=== PATIENT | female | born 1960 | race Caucasian/White ===

== ENCOUNTER → 2017-07-02 | Outpatient (CLI) | payer OTHER ==
--- NOTE | 2017-07-02 11:26 | RAD ---
Thyroid ultrasound 07/02/2017 Clinical history: Elevated TSH. Technique: A real-time ultrasound examination of the thyroid gland was performed. Multiple images were obtained. Findings: The thyroid gland is small and heterogeneous. The right lobe of thyroid gland measures 3.1 x 1.5 x 1.3 cm in longitudinal, transverse, and AP dimensions. The left lobe of thyroid gland measures 2.6 x 1.2 x 1.0 cm in size. The isthmus measures 3 mm in thickness which is within normal limits. Within the right lobe of the thyroid gland a 7 mm oval-shaped slightly heterogeneous nodule is seen. This has a well-defined border and is considered to be benign. No additional abnormality of the thyroid gland is seen. Impression: The thyroid gland is small and heterogeneous. A 7 mm benign-appearing nodule is seen involving the right lobe of the thyroid gland. No additional abnormality is seen.
== END | disposition home or self-care (01) ==
LOC: US 08:47
PROVIDERS: ATTEND Physician Assistant Medical
DX: R94.6 Abnormal results of thyroid function studies (principal)
CPT/HCPCS: 76536

== ENCOUNTER 2018-11-30 21:20 | Emergency (ER) | payer OTHER ==
[~2018-11-30] VITALS: Ht 157.5 cm; Wt 68.2 kg
[2018-11-30] MEDS ORDERED: LIDO:MAALOX 1:1 20 ML SINGLE DOSE. PO ONE (21:45)
[2018-11-30 21:54] LABS: BASO # 0.1 x10^3/uL (0.0-0.2); BASO % 1 % (0-3); EOS # 0.4 x10^3/uL (0.0-0.7); EOS % 4 % (0-3); HEMATOCRIT 41.2 % (36.0-47.0); HEMOGLOBIN 13.9 g/dL (12.0-15.5); LYMPH # 2.5 x10^3/uL (1.0-4.8); LYMPH % 26 % (24-48); MEAN CORPUSCULAR HEMOGLOBIN 30 pg (25-35); MEAN CORPUSCULAR HGB CONC 34 g/dL (31-37); MEAN CORPUSCULAR VOLUME 89 fL (79-100); MONO # 0.9 x10^3/uL (0.0-1.1); MONO % 10 % (0-9); NEUT # 5.6 x10^3uL (1.8-7.7); NEUT % 59 % (31-73); PLATELET COUNT 369 x10^3/uL (140-400); RED BLOOD COUNT 4.66 x10^6/uL (3.50-5.40); RED CELL DISTRIBUTION WIDTH 13.6 % (11.5-14.5); WHITE BLOOD COUNT 9.4 x10^3/uL (4.0-11.0)
[2018-11-30] MEDS ORDERED: IV NORMAL SALINE 1,000ML 1,000 ML IV SCH (22:00)
[2018-11-30 22:15] LABS: ALBUMIN/GLOBULIN RATIO 1.2 (1.0-1.7); CALCIUM 8.8 mg/dL (8.5-10.1); CREATININE 0.9 mg/dL (0.6-1.0); GFR 64.5; MAGNESIUM 2.1 mg/dL (1.8-2.4); POTASSIUM 3.8 mmol/L (3.5-5.1); TOTAL BILIRUBIN 0.4 mg/dL (0.2-1.0); TOTAL PROTEIN 7.4 g/dL (6.4-8.2)
[2018-11-30] MEDS ORDERED: CONTRAST GIVEN MC PRN (22:30)
[2018-11-30] MEDS ORDERED: KETOROLAC 30 MG/ML VIAL. IV ONE (23:00)
[2018-11-30] MEDS ORDERED: IOHEXOL 350 MG/ML 100 ML VIAL. IV ONE (23:00)
--- NOTE | 2018-11-30 23:28 | RAD ---
Chest AP portable at 2131: Reason for examination: Chest pain with shortness of breath and nausea. Comparison is made to previous study dated 07/13/2016. The heart size is normal. Mediastinum is unremarkable. Lung hernandez are clear. No acute bony abnormalities are seen. IMPRESSION: No acute cardiopulmonary disease. CT angiogram of the chest with contrast: Helical images were obtained through the chest with intravenous administration of 90 cc Omnipaque 350 using PE protocol. 3-D MIPS reconstruction was performed in sagittal and coronal planes. Exposure: One or more of the following individualized dose reduction techniques were utilized for this examination: 1. Automated exposure control 2. Adjustment of the mA and/or kV according to patient size 3. Use of iterative reconstruction technique. No abnormality seen at the thyroid gland. The trachea and mainstem bronchi show no intraluminal lesions. No abnormality seen at the esophagus. The thoracic aorta shows no aneurysmal dilatation or dissection. The heart size is normal with no pericardial effusion. There is no evidence of pulmonary embolus. The lung hernandez show a small noncalcified pulmonary nodule in the left lingular peripherally measuring 4.7 mm in size. This likely represents a granuloma but recommend follow-up according to Fleischner Society guidelines. No other infiltrates or pleural effusions are seen. No abnormality seen at the liver, adrenal glands or spleen. No acute bony abnormalities are seen. IMPRESSION: No evidence of pulmonary embolus. Small 4.7 mm noncalcified nodule peripherally in the left lingula. This probably represents a granuloma but recommend follow-up according to Fleischner Society guidelines. Fleischner Society recommendations (Radiology 2013; 266;304-317): Subsolid nodules: Solitary pure groundglass nodules: Less then or equal to 5 mm: No CT follow-up is required. Greater than 5 mm: Initial follow-up CT at 3 months, it persists, then annual surveillance CT for minimal of 3 years. Solitary part solid nodules: Less than 5 mm: Initial follow-up CT at 3 months, it persists, then annual surveillance CT for minimal 3 years. Greater or equal to 5 mm: Initial follow-up CT at 3 months, if persists, then biopsy or surgical resection. Multiple subsolid nodules: Groundglass nodules less than or equal to 5 mm: Obtained follow-up CT at 2 and 4 years. Groundglass nodules greater than 5 mm: Initial CT follow-up at 3 months, then annual surveillance CT for minimal of 3 years. Dominant nodule with part solid or solid component: Initial follow-up CT at 3 months. It persists, biopsy or surgical resection is recommended for lesions greater than 5 mm. Electronically signed by: Gertrudis Das MD (11/30/2018 11:25 PM) [id number]
--- NOTE | 2018-11-30 23:38 | PHYS DOC ---
Adult General Chief Complaint Chief Complaint: CHEST PAIN-CARDIAC NATURE HPI HPI Patient is a 58-year-old female who presents with complaint of chest discomfort that has been present for approximately one week now. Patient states that the pain feels like a tightness and she also feels the tightness in her back. She denies any nausea, vomiting or diaphoresis. She does indicate that she has a history of reflux. Patient rates her pain currently at a 4 out of 10. She states that nothing seems to worsen or improve her pain.[] Review of Systems Review of Systems Constitutional: Denies fever or chills [] Respiratory: Denies cough or shortness of breath [] Cardiovascular: No additional information not addressed in HPI [] GI: Denies abdominal pain, nausea, vomiting or diarrhea [] Musculoskeletal: Denies back pain or joint pain [] Neurologic: Denies headache, focal weakness or sensory changes [] All other systems were reviewed and found to be within normal limits, except as documented in this note. Current Medications Current Medications Current Medications Medications (Trade) Dose Ordered Sig/Haydee Start Time Stop Time Status Last Admin Dose Admin Info (Do NOT chart on this entry -- for MONITORING) 1 each PRN DAILY PRN 11/30/18 22:30 12/02/18 22:29 Iohexol (Omnipaque 350 Mg/ml) 100 ml 1X ONCE 11/30/18 23:00 11/30/18 23:01 DC 11/30/18 22:58 100 ML Ketorolac Tromethamine (Toradol 30mg Vial) 30 mg 1X ONCE 11/30/18 23:00 11/30/18 23:01 DC 11/30/18 22:32 30 MG Multi-Ingredient Mouthwash/Gargle (Gi Cocktail) 20 ml 1X ONCE 11/30/18 21:45 11/30/18 21:51 DC 11/30/18 21:43 20 ML Sodium Chloride 1,000 ml @ 1,000 mls/hr Q1H 11/30/18 22:00 11/30/18 22:59 DC 11/30/18 22:13 1,000 MLS/HR Allergies Allergies Allergies Coded Allergies Type Severity Reaction Last Updated Verified Sulfa (Sulfonamide Antibiotics) Allergy Severe Hives 11/30/18 Yes Penicillins Allergy Intermediate 11/30/18 Yes Physical Exam Physical Exam Constitutional: Well developed, well nourished, no acute distress, non-toxic appearance. [] HENT: Normocephalic, atraumatic, bilateral external ears normal, oropharynx moist, no oral exudates, nose normal. [] Eyes: PERRLA, EOMI, conjunctiva normal, no discharge. [] Neck: Normal range of motion, no tenderness, supple, no stridor. [] Cardiovascular:Heart rate regular rhythm [] Lungs & Thorax: Bilateral breath sounds clear to auscultation [] Abdomen: Bowel sounds normal, soft, no tenderness. [] Skin: Warm, dry, no erythema, no rash. [] Extremities: No tenderness, no cyanosis, no clubbing, ROM intact, no edema. [] Neurologic: Alert and oriented X 3, no focal deficits noted. [] Current Patient Data Lab Results Laboratory Tests Test 11/30/18 21:34 White Blood Count 9.4 x10^3/uL (4.0-11.0) Red Blood Count 4.66 x10^6/uL (3.50-5.40) Hemoglobin 13.9 g/dL (12.0-15.5) Hematocrit 41.2 % (36.0-47.0) Mean Corpuscular Volume 89 fL (79-100) Mean Corpuscular Hemoglobin 30 pg (25-35) Mean Corpuscular Hemoglobin Concent 34 g/dL (31-37) Red Cell Distribution Width 13.6 % (11.5-14.5) Platelet Count 369 x10^3/uL (140-400) Neutrophils (%) (Auto) 59 % (31-73) Lymphocytes (%) (Auto) 26 % (24-48) Monocytes (%) (Auto) 10 % (0-9) H Eosinophils (%) (Auto) 4 % (0-3) H Basophils (%) (Auto) 1 % (0-3) Neutrophils # (Auto) 5.6 x10^3uL (1.8-7.7) Lymphocytes # (Auto) 2.5 x10^3/uL (1.0-4.8) Monocytes # (Auto) 0.9 x10^3/uL (0.0-1.1) Eosinophils # (Auto) 0.4 x10^3/uL (0.0-0.7) Basophils # (Auto) 0.1 x10^3/uL (0.0-0.2) Sodium Level 136 mmol/L (136-145) Potassium Level 3.8 mmol/L (3.5-5.1) Chloride Level 99 mmol/L (98-107) Carbon Dioxide Level 31 mmol/L (21-32) Anion Gap 6 (6-14) Blood Urea Nitrogen 11 mg/dL (7-20) Creatinine 0.9 mg/dL (0.6-1.0) Estimated GFR (Cockcroft-Gault) 64.5 BUN/Creatinine Ratio 12 (6-20) Glucose Level 83 mg/dL (70-99) Calcium Level 8.8 mg/dL (8.5-10.1) Magnesium Level 2.1 mg/dL (1.8-2.4) Total Bilirubin 0.4 mg/dL (0.2-1.0) Aspartate Amino Transferase (AST) 13 U/L (15-37) L Alanine Aminotransferase (ALT) 24 U/L (14-59) Alkaline Phosphatase 79 U/L (46-116) Troponin I Quantitative < 0.017 ng/mL (0-0.055) PH-Hda-K-Type Natriuretic Peptide 76 pg/mL (0-124) Total Protein 7.4 g/dL (6.4-8.2) Albumin 4.0 g/dL (3.4-5.0) Albumin/Globulin Ratio 1.2 (1.0-1.7) Lipase 151 U/L (73-393) EKG EKG EKG demonstrates a normal sinus rhythm with rate of 71.[] Radiology/Procedures Radiology/Procedures [] Impressions: PROCEDURE: CT ANGIOGRAPHY CHEST Chest AP portable at 2131: Reason for examination: Chest pain with shortness of breath and nausea. Comparison is made to previous study dated 07/13/2016. The heart size is normal. Mediastinum is unremarkable. Lung hernandez are clear. No acute bony abnormalities are seen. IMPRESSION: No acute cardiopulmonary disease. CT angiogram of the chest with contrast: Helical images were obtained through the chest with intravenous administration of 90 cc Omnipaque 350 using PE protocol. 3-D MIPS reconstruction was performed in sagittal and coronal planes. Exposure: One or more of the following individualized dose reduction techniques were utilized for this examination: 1. Automated exposure control 2. Adjustment of the mA and/or kV according to patient size 3. Use of iterative reconstruction technique. No abnormality seen at the thyroid gland. The trachea and mainstem bronchi show no intraluminal lesions. No abnormality seen at the esophagus. The thoracic aorta shows no aneurysmal dilatation or dissection. The heart size is normal with no pericardial effusion. There is no evidence of pulmonary embolus. The lung hernandez show a small noncalcified pulmonary nodule in the left lingular peripherally measuring 4.7 mm in size. This likely represents a granuloma but recommend follow-up according to Fleischner Society guidelines. No other infiltrates or pleural effusions are seen. No abnormality seen at the liver, adrenal glands or spleen. No acute bony abnormalities are seen. IMPRESSION: No evidence of pulmonary embolus. Small 4.7 mm noncalcified nodule peripherally in the left lingula. This probably represents a granuloma but recommend follow-up according to Fleischner Society guidelines. Course & Med Decision Making Course & Med Decision Making Pertinent Labs and Imaging studies reviewed. (See chart for details) [] Dragon Disclaimer Dragon Disclaimer This electronic medical record was generated, in whole or in part, using a voice recognition dictation system. Departure Departure: Impression: Primary Impression: Chest wall pain Disposition: HOME, SELF-CARE Condition: STABLE Referrals: SHAHRIAR PINTO (PCP) Patient Instructions: Chest Wall Pain ROSA LAMBERT Jr. DO Nov 30, 2018 23:38
[2018-12-01 00:15] VITALS: BP 118/72
--- NOTE | 2018-12-01 07:13 | EKG ---
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
== END 2018-12-01 00:16 | disposition home or self-care (01) ==
LOC: ER 21:20
DX: R07.89 Other chest pain (principal); M54.89 Other dorsalgia; Z88.2 Allergy status to sulfonamides; Z88.0 Allergy status to penicillin
CPT/HCPCS: 36415; 71045; 71275; 80053; 83690; 83735; 83880; 84484; 85025; 93005; 96374; 99285; J1885; Q9967; J7030

== ENCOUNTER → 2019-01-14 | Outpatient (CLI) | payer OTHER ==
[~2019-01-14] MED LIST: IOHEXOL 300 MG/ML 75 ML VIAL. IV ONE
--- NOTE | 2019-01-14 09:35 | RAD ---
CT SOFT TISSUE NECK W/CONTRAST DATE: 01/14/2019 12:00 AM INDICATION: Dysphagia TECHNIQUE: Axial computed tomography of the neck with intravenous contrast according to the standard neck protocol. 75 cc of Omnipaque 300 was administered intravenously. One or more of the following dose reduction techniques were utilized: Automated exposure control (AEC), Adjustment of mA and/or kV according to patient size, Use of iterative reconstruction technique such as ASiR, CT scan done according to ALARA and image gently/image wisely COMPARISON: Barium esophagram 12/13/2018. CT chest 11/30/2018. FINDINGS: Scattered subcentimeter lymph nodes are seen in the neck. None are pathologically enlarged or abnormally enhancing. The parotid, submandibular, and thyroid glands are normal. The muscles of the neck are normal. Vessels of the neck demonstrate normal course, caliber, and enhancement. The visualized aerodigestive tract is normal. The visualized posterior fossa and brain is unremarkable. The visualized orbits and paranasal sinuses are normal. The cervical spine is normal. The visualized lung apices are clear. IMPRESSION: No neck mass or lymphadenopathy. Electronically signed by: Fabian Elizondo MD (01/14/2019 9:32 AM) [id number]
== END | disposition home or self-care (01) ==
LOC: CT 08:14
PROVIDERS: ATTEND Internal Medicine Gastroenterology
DX: R13.12 Dysphagia, oropharyngeal phase (principal); R59.0 Localized enlarged lymph nodes
CPT/HCPCS: 70491; Q9967